=== PATIENT | male | born 1985 | race Caucasian/White ===

== ENCOUNTER 2017-11-21 23:38 | Emergency (ER) | payer OTHER ==
[~2017-11-21] VITALS: Ht 172.7 cm; Wt 100.2 kg
[2017-11-21 23:43] VITALS: Ht 172.7 cm; Wt 100.2 kg
[2017-11-22 01:16] VITALS: BP 112/69
== END 2017-11-22 01:16 | disposition home or self-care (01) ==
LOC: ED 23:38
DX: S40.021A Contusion of right upper arm, initial encounter (principal); E11.9 Type 2 diabetes mellitus without complications; W18.30XA Fall on same level, unspecified, initial encounter; Y93.89 Activity, other specified; Y92.89 Other specified places as the place of occurrence of the external cause; Y99.8 Other external cause status
CPT/HCPCS: Q0092